=== PATIENT | male | born 1965 | race Caucasian/White ===

== ENCOUNTER 2016-12-10 15:27 | Emergency (ER) | payer OTHER ==
[~2016-12-10] VITALS: Ht 177.8 cm; Wt 88.5 kg
[2016-12-10 15:40] VITALS: BP 139/91
[2016-12-10] MEDS ORDERED: IBUPROFEN 400 MG TABLET. PO ONE (16:30)
[2016-12-10] MEDS ORDERED: HYDR-971 PO (16:32)
--- NOTE | 2016-12-10 16:32 | PHYS DOC ---
Adult General Chief Complaint Chief Complaint: LACERATION/AVULSION HPI HPI Patient is a 51-year-old male who presents with lacerations to his left index and middle fingers. The patient was using a battery operated hedge clipper. A stick got stuck and it, and he reached in to take the stick out without turning the anpuama off. The patient denies other injury. Review of Systems Review of Systems Constitutional: Denies fever or chills [] Current Medications Current Medications Current Medications Medications (Trade) Dose Ordered Sig/Andrei Start Time Stop Time Status Last Admin Dose Admin Ibuprofen (Motrin) 800 mg 1X ONCE 12/10/16 16:00 12/10/16 16:01 UNV Physical Exam Physical Exam Constitutional: Well developed, well nourished, no acute distress, non-toxic appearance. Alert, ambulatory, mentating normally. HENT: Normocephalic, atraumatic, bilateral external ears normal, nose normal. [ ] Eyes: conjunctiva normal, no discharge. [] Skin: Warm, dry, no erythema, no rash. [] Extremities: Left hand: The index finger has 3 small, superficial lacerations that are flaps, with skin still attached but likely nonviable. They're very superficial. There is no deep laceration. The index finger has a tip avulsion measuring approximately 1 x 0.7 cm and 3-4 mm thick. It involves the distal tip of the fingernail only. All lacerations are hemostatic. Neurologic: Alert and oriented X 3, normal motor function, no focal deficits noted. [] EKG EKG [] Radiology/Procedures Radiology/Procedures Procedure: Repair of left index finger lacerations by me. Lacerations total 1 cm in length. There are 3 small, superficial flap type lacerations. They were cleaned by ED nursing staff. I held pressure for a couple of minutes for hemostasis. I then used skin adhesive to repair the lacerations to cover the underlying skin with the likely devitalized skin flaps until it's able to heal underneath. Bandaged by ED nursing staff.[] Course & Med Decision Making Course & Med Decision Making Pertinent Labs and Imaging studies reviewed. (See chart for details) 51-year-old male presents with superficial flap lacerations to the left index finger and an avulsion to the left middle finger which may be full-thickness in the middle. They were cleaned and repaired and bandaged. Advised him to follow- up because he may end up needing further care or skin graft on the middle finger. The patient is stable for discharge. See instructions for plan. [] Claudine Disclaimer Claudine Disclaimer This chart was dictated in whole or in part using Voice Recognition software in a busy, high-work load, and often noisy Emergency Department environment. It may contain unintended and wholly unrecognized errors or omissions. Departure Departure: Impression: Primary Impression: Laceration of left hand without complication, including fingers Disposition: 01 HOME, SELF-CARE Condition: STABLE Patient Instructions: Fingertip Laceration Additional Instructions: On the index finger, skin glue was used to stick down the skin flaps. That will help to cover the areas until they heal. Keep it bandaged for your comfort as long as needed for comfort, it can be left open if that is more comfortable after 2 days. On the middle finger, as we discussed, an area of skin is missing. Because of the size and depth of the missing skin, I would like you to follow up and you may need referral to wound management, you may end up needing a skin graft if it doesn't heal in by itself. Call your doctor on Monday to arrange follow-up, either with your primary care doctor or they can refer you to a wound clinic for a hand surgeon. Leave the dressings in place for 48 hours. When you remove the dressing on the index finger, you may replace it with a Band-Aid or a tubular gauze, whichever you prefer based on how it feels. When you remove the dressing on the middle finger, if it is stuck, soak it in warm soapy water until you can get it off. Then, soak the finger tip for 10 minutes in warm soapy water, swish around, patent dry. Cover with antibiotic ointment or Vaseline, a nonstick dressing, and a gauze wrap or tubular gauze. Dressing it this way every day until you see your doctor for recheck, then as directed. Ibuprofen 800 mg every 6-8 hours for pain. If needed for more severe pain, hydrocodone as directed. You may take this with ibuprofen. Hydrocodone is an opiate and may be addicting, sedating, and constipating. Do not take while driving or working. Scripts Hydrocodone Bit/Acetaminophen (NORCO 5-325 TABLET) 1 Each Tablet 1 TAB PO PRN Q6HRS Y for PAIN, #10 TAB 0 Refills Prov: JUDD LEAL MD 12/10/16 JUDD LEAL MD Dec 10, 2016 16:32
== END 2016-12-10 16:50 | disposition home or self-care (01) ==
LOC: ER 15:27
DX: S61.211A Laceration without foreign body of left index finger without damage to nail, initial encounter (principal); S61.213A Laceration without foreign body of left middle finger without damage to nail, initial encounter; W29.3XXA Contact with powered garden and outdoor hand tools and machinery, initial encounter; Y93.89 Activity, other specified; Y99.8 Other external cause status; Y92.89 Other specified places as the place of occurrence of the external cause
CPT/HCPCS: 96361; 96374; 96375; 96376; 99283; 99285-25

== ENCOUNTER 2018-10-30 00:52 | Emergency (ER) | payer OTHER ==
[~2018-10-30] VITALS: Ht 177.8 cm; Wt 88.5 kg
[~2018-10-30 00:52] MED LIST: HYDR-3165 PO
--- NOTE | 2018-10-30 00:57 | ED.ADGEN ---
Past History Past Medical History: High Cholesterol, Hypertension, Kidney Stones Past Surgical History: No Surgical History Alcohol Use: Occasionally Drug Use: None Adult General Chief Complaint Chief Complaint "This probably my 4 th kidney stone.. the last one was in 2003.. and I got a stent.. I ve had one on the Lt. and 3 on Rt...." HPI HPI Patient is a 53 year old MALE who presents with above hx and complaints of severe right flank pain. Pain is intermittent and stabbing. Radiates from right flank down to groin. Patient denies any trauma. Patient denies any travel. Patient denies any immunosuppression. Patient has had history of 4 previous kidney stones one requiring a stent in 2003. Review of Systems Review of Systems Constitutional: Denies fever or chills [] Eyes: Denies change in visual acuity, redness, or eye pain [] HENT: Denies nasal congestion or sore throat [] Respiratory: Denies cough or shortness of breath [] Cardiovascular: No additional information not addressed in HPI [] GI: Denies abdominal pain, , bloody stools or diarrhea []complaints of right flank pain. Complains of nausea : Denies dysuria or hematuria [] Musculoskeletal: Denies back pain or joint pain [] Integument: Denies rash or skin lesions [] Neurologic: Denies headache, focal weakness or sensory changes [] Endocrine: Denies polyuria or polydipsia [] All other systems were reviewed and found to be within normal limits, except as documented in this note. Family History Family History Noncontributory Current Medications Current Medications Current Medications Medications (Trade) Dose Ordered Sig/Andrei Start Time Stop Time Status Last Admin Dose Admin Famotidine (Pepcid Vial) 20 mg 1X ONCE 10/30/18 01:15 10/30/18 01:16 DC 10/30/18 01:42 20 MG Ketorolac Tromethamine (Toradol 30mg Vial) 30 mg 1X ONCE 10/30/18 01:15 10/30/18 01:16 DC 10/30/18 01:42 30 MG Lactated Ringer's 1,000 ml @ 1,000 mls/hr Q1H 10/30/18 01:15 10/30/18 02:14 DC 10/30/18 01:42 1,000 MLS/HR Morphine Sulfate (Morphine 10mg Syringe) 10 mg 1X ONCE 10/30/18 03:45 10/30/18 03:46 DC 10/30/18 03:38 10 MG Ondansetron HCl (Zofran) 8 mg 1X ONCE 10/30/18 01:15 10/30/18 01:16 DC 10/30/18 01:42 8 MG Tamsulosin HCl (Flomax) 0.4 mg 1X ONCE 10/30/18 03:45 10/30/18 03:46 DC 10/30/18 03:38 0.4 MG Allergies Allergies Allergies Coded Allergies Type Severity Reaction Last Updated Verified Iodinated Contrast Media Allergy Severe Rash 10/30/18 Yes Physical Exam Physical Exam Constitutional: Well developed, well nourished, no acute distress, non-toxic appearance. [] HENT: Normocephalic, atraumatic, bilateral external ears normal, oropharynx moist, no oral exudates, nose normal. [] Eyes: PERRLA, EOMI, conjunctiva normal, no discharge. [] Neck: Normal range of motion, no tenderness, supple, no stridor. [] Cardiovascular:Heart rate regular rhythm, no murmur [] Lungs & Thorax: Bilateral breath sounds clear to auscultation [] Abdomen: Bowel sounds decreased, soft, no tenderness, no masses, no pulsatile masses. [] Skin: Warm, dry, no erythema, no rash. [] Back: No tenderness, right CVA tenderness. [] Extremities: No tenderness, no cyanosis, no clubbing, ROM intact, no edema. [] Neurologic: Alert and oriented X 3, normal motor function, normal sensory function, no focal deficits noted. [] Psychologic: Affect anxious, judgement normal, mood normal. [] Current Patient Data Vital Signs Vital Signs Date Time Temp Pulse Resp B/P (MAP) Pulse Ox O2 Delivery O2 Flow Rate FiO2 10/30/18 03:38 18 99 Room Air 10/30/18 00:52 98.6 62 Lab Results Laboratory Tests Test 10/30/18 01:00 10/30/18 01:10 Urine Collection Type Unknown Urine Color Yellow Urine Clarity Clear Urine pH 6.5 Urine Specific [place] 1.020 Urine Protein Neg (NEG-TRACE) Urine Glucose (UA) Neg mg/dL (NEG) Urine Ketones (Stick) Neg mg/dL (NEG) Urine Blood Trace (NEG) Urine Nitrite Neg (NEG) Urine Bilirubin Neg (NEG) Urine Urobilinogen Dipstick 0.2 mg/dL (0.2 mg/dL) Urine Leukocyte Esterase Neg (NEG) Urine RBC Rare /HPF (0-2) Urine WBC Occ /HPF (0-4) Urine Squamous Epithelial Cells Few /LPF Urine Bacteria 0 /HPF (0-FEW) Urine Opiates Screen Neg (NEG) Urine Methadone Screen Neg (NEG) Urine Barbiturates Neg (NEG) Urine Phencyclidine Screen Neg (NEG) Urine Amphetamine/Methamphetamine Neg (NEG) Urine Benzodiazepines Screen Neg (NEG) Urine Cocaine Screen Neg (NEG) Urine Cannabinoids Screen Neg (NEG) Urine Ethyl Alcohol Neg (NEG) White Blood Count 9.4 x10^3/uL (4.0-11.0) Red Blood Count 4.75 x10^6/uL (4.30-5.70) Hemoglobin 15.5 g/dL (13.0-17.5) Hematocrit 44.8 % (39.0-53.0) Mean Corpuscular Volume 94 fL (79-100) Mean Corpuscular Hemoglobin 33 pg (25-35) Mean Corpuscular Hemoglobin Concent 35 g/dL (31-37) Red Cell Distribution Width 13.0 % (11.5-14.5) Platelet Count 276 x10^3/uL (140-400) Neutrophils (%) (Auto) 39 % (31-73) Lymphocytes (%) (Auto) 46 % (24-48) Monocytes (%) (Auto) 10 % (0-9) H Eosinophils (%) (Auto) 4 % (0-3) H Basophils (%) (Auto) 1 % (0-3) Neutrophils # (Auto) 3.6 x10^3uL (1.8-7.7) Lymphocytes # (Auto) 4.4 x10^3/uL (1.0-4.8) Monocytes # (Auto) 1.0 x10^3/uL (0.0-1.1) Eosinophils # (Auto) 0.4 x10^3/uL (0.0-0.7) Basophils # (Auto) 0.1 x10^3/uL (0.0-0.2) Prothrombin Time 10.3 SEC (9.4-11.4) Prothrombin Time INR 1.0 (0.9-1.1) Activated Partial Thromboplast Time 27 SEC (23-33) Sodium Level 142 mmol/L (136-145) Potassium Level 3.8 mmol/L (3.5-5.1) Chloride Level 106 mmol/L (98-107) Carbon Dioxide Level 27 mmol/L (21-32) Anion Gap 9 (6-14) Blood Urea Nitrogen 18 mg/dL (8-26) Creatinine 1.1 mg/dL (0.7-1.3) Estimated GFR (Cockcroft-Gault) 70.0 Glucose Level 105 mg/dL (70-99) H Calcium Level 8.8 mg/dL (8.5-10.1) Total Bilirubin 0.5 mg/dL (0.2-1.0) Direct Bilirubin 0.2 mg/dL (0.0-0.2) Aspartate Amino Transferase (AST) 21 U/L (15-37) Alanine Aminotransferase (ALT) 33 U/L (16-63) Alkaline Phosphatase 81 U/L (46-116) Creatine Kinase 86 U/L (39-308) Troponin I Quantitative < 0.017 ng/mL (0-0.055) Total Protein 7.4 g/dL (6.4-8.2) Albumin 4.0 g/dL (3.4-5.0) Lipase 158 U/L (73-393) EKG EKG [] Radiology/Procedures Radiology/Procedures [] Signed PATIENT: DEACON SANTIAGO ACCOUNT: [id number] : 1965 LOCATION: ER AGE: 53 SEX: M EXAM STATUS: REG ER ORD. PHYSICIAN: GERARD SABA MD REASON: flank pain, H/O KIDNEY STONES. PROCEDURE: CT ABDOMEN PELVIS WO CONTRAST CT ABDOMEN PELVIS WO CONTRAST INDICATION: Flank pain, history of renal calculi EXAM: Noncontrast CT of the abdomen and pelvis. Coronal and sagittal reformatted images were performed. PQRS compliance statement: One or more of the following individualized dose reduction techniques were utilized for this examination: 1. Automated exposure control 2. Adjustment of the mA and/or kV according to patient size 3. Use of iterative reconstruction technique COMPARISON: None FINDINGS: No free air, free fluid, or fluid collection. Lower chest: The visualized lower lungs are aerated. No pleural or pericardial effusion. ABDOMEN: Liver: The noncontrast liver is homogeneous in attenuation. Gallbladder and biliary: Gallbladder is decompressed. Normal caliber bile ducts. Spleen: Normal spleen. Pancreas: The noncontrast pancreas is homogeneous in attenuation without peripancreatic inflammatory changes. Adrenal glands: Normal adrenal glands. Kidneys and ureters: Moderate right hydronephrosis. 4 mm calculus at the right ureteropelvic junction. GI tract: The stomach contains debris. Normal caliber small bowel and colon. Normal appendix. Vascular structures: Normal caliber abdominal aorta. Lymph nodes: No lymphadenopathy in the abdomen or pelvis. PELVIS: Genitourinary system: Diffuse bladder wall thickening. Dystrophic prostate calcifications. SKELETAL STRUCTURES AND SOFT TISSUES: Multilevel degenerative changes of the spine. IMPRESSION: 1. Moderate right hydronephrosis secondary to a 4 mm calculus at the right ureteropelvic junction. 2. Diffuse bladder wall thickening, which may relate to underdistention, obstructive uropathy, or cystitis. Consider urinalysis. Electronically signed by: Lily Mehta MD (10/30/2018 2:46 AM) [facility] DICTATED AND SIGNED BY: LILY MEHTA MD DATE: 10/30/18 0246 CC: GERARD SABA MD; IVETH MURILLO MD ~ Course & Med Decision Making Course & Med Decision Making Pertinent Labs and Imaging studies reviewed. (See chart for details). Push fluids. Take Flomax at night. The past. Follow-up primary. Follow-up with urology. Take Zofran for nausea and vomiting. For marked pain take Vicoprofen up to 4 times a day. [] Final Impression Final Impression 1. Renal Colic[]- Kidney stone Rt. Dragon Disclaimer Dragon Disclaimer This electronic medical record was generated, in whole or in part, using a voice recognition dictation system. Dragon Disclaimer This chart was dictated in whole or in part using Voice Recognition software in a busy, high-work load, and often noisy Emergency Department environment. It may contain unintended and wholly unrecognized errors or omissions. GERARD SABA MD Oct 30, 2018 00:57
[2018-10-30] MEDS ORDERED: ONDANSETRON PF 4 MG/2 ML VIAL. IV ONE (01:15)
[2018-10-30] MEDS ORDERED: KETOROLAC 30 MG/ML VIAL. IV ONE (01:15)
[2018-10-30] MEDS ORDERED: IV RINGERS SOLUTION,LACTATED 1,000 ML IV SCH (01:15)
[2018-10-30] MEDS ORDERED: FAMOTIDINE 20 MG/2 ML VIAL IVP ONE (01:15)
[2018-10-30 01:28] LABS: BASO # 0.1 x10^3/uL (0.0-0.2); BASO % 1 % (0-3); EOS # 0.4 x10^3/uL (0.0-0.7); EOS % 4 % (0-3); HEMATOCRIT 44.8 % (39.0-53.0); HEMOGLOBIN 15.5 g/dL (13.0-17.5); LYMPH # 4.4 x10^3/uL (1.0-4.8); LYMPH % 46 % (24-48); MEAN CORPUSCULAR HEMOGLOBIN 33 pg (25-35); MEAN CORPUSCULAR HGB CONC 35 g/dL (31-37); MEAN CORPUSCULAR VOLUME 94 fL (79-100); MONO % 10 % (0-9); NEUT # 3.6 x10^3uL (1.8-7.7); NEUT % 39 % (31-73); PLATELET COUNT 276 x10^3/uL (140-400); RED BLOOD COUNT 4.75 x10^6/uL (4.30-5.70); WHITE BLOOD COUNT 9.4 x10^3/uL (4.0-11.0)
[2018-10-30 01:35] LABS: BILIRUBIN,URINE NEG (NEG); CLARITY,URINE CLEAR; COLOR,URINE YELLOW; GLUCOSE,URINE NEG (NEG); NITRITE,URINE NEG (NEG); UROBILINOGEN,URINE 0.2 mg/dL (0.2 mg/dL)
[2018-10-30 01:37] LABS: BARBITURATES NEG (NEG); BENZODIAZEPINES NEG (NEG); CANNABINOIDS NEG (NEG); COCAINE NEG (NEG); METHADONE NEG (NEG); OPIATES NEG (NEG); PHENCYCLIDINE NEG (NEG)
[2018-10-30 01:38] LABS: BACTERIA,URINE 0 /HPF (0-FEW); RBC,URINE RARE /HPF (0-2); SQUAMOUS EPITHELIAL CELL,UR FEW /LPF; WBC,URINE OCC /HPF (0-4)
[2018-10-30 01:41] LABS: CALCIUM 8.8 mg/dL (8.5-10.1); CREATININE 1.1 mg/dL (0.7-1.3); DIRECT BILIRUBIN 0.2 mg/dL (0.0-0.2); POTASSIUM 3.8 mmol/L (3.5-5.1); TOTAL BILIRUBIN 0.5 mg/dL (0.2-1.0); TOTAL PROTEIN 7.4 g/dL (6.4-8.2)
[2018-10-30 01:43] LABS: AMPHETAMINE/METHAMPHETAMINE NEG (NEG)
--- NOTE | 2018-10-30 02:49 | RAD ---
CT ABDOMEN PELVIS WO CONTRAST INDICATION: Flank pain, history of renal calculi EXAM: Noncontrast CT of the abdomen and pelvis. Coronal and sagittal reformatted images were performed. PQRS compliance statement: One or more of the following individualized dose reduction techniques were utilized for this examination: 1. Automated exposure control 2. Adjustment of the mA and/or kV according to patient size 3. Use of iterative reconstruction technique COMPARISON: None FINDINGS: No free air, free fluid, or fluid collection. Lower chest: The visualized lower lungs are aerated. No pleural or pericardial effusion. ABDOMEN: Liver: The noncontrast liver is homogeneous in attenuation. Gallbladder and biliary: Gallbladder is decompressed. Normal caliber bile ducts. Spleen: Normal spleen. Pancreas: The noncontrast pancreas is homogeneous in attenuation without peripancreatic inflammatory changes. Adrenal glands: Normal adrenal glands. Kidneys and ureters: Moderate right hydronephrosis. 4 mm calculus at the right ureteropelvic junction. GI tract: The stomach contains debris. Normal caliber small bowel and colon. Normal appendix. Vascular structures: Normal caliber abdominal aorta. Lymph nodes: No lymphadenopathy in the abdomen or pelvis. PELVIS: Genitourinary system: Diffuse bladder wall thickening. Dystrophic prostate calcifications. SKELETAL STRUCTURES AND SOFT TISSUES: Multilevel degenerative changes of the spine. IMPRESSION: 1. Moderate right hydronephrosis secondary to a 4 mm calculus at the right ureteropelvic junction. 2. Diffuse bladder wall thickening, which may relate to underdistention, obstructive uropathy, or cystitis. Consider urinalysis. Electronically signed by: Winston Mehta MD (10/30/2018 2:46 AM) [facility]
[2018-10-30] MEDS ORDERED: TAMS0.4C97 PO (03:24)
[2018-10-30] MEDS ORDERED: HYDR-1179 PO (03:24)
[2018-10-30] MEDS ORDERED: ONDA8TAB9 PO (03:24)
[2018-10-30] MEDS ORDERED: MORPHINE SULFATE 10 MG/ML SYRINGE. SQ ONE (03:45)
[2018-10-30] MEDS ORDERED: TAMSULOSIN 0.4 MG CAP.ER.24H. PO ONE (03:45)
[2018-10-30 04:10] VITALS: BP 125/88
--- NOTE | 2018-10-30 05:19 | RAD ---
ACUTE ABDOMEN SERIES INDICATION: Abdominal pain. COMPARISON STUDY: None. FINDINGS: Lungs: Normal lung volume. No pulmonary mass or consolidation. The tracheobronchial tree and hilar structures are normal. Pleura: No pleural effusion or pneumothorax. Heart and Mediastinum: The cardiomediastinal silhouette is normal. The great vessels of the thorax are normal. Abdomen: Scattered gaseous distention of large and small bowel. Moderate colonic stool burden. No free air. Bones and Soft Tissues: The bones and soft tissues are within normal limits. IMPRESSION: No acute cardiopulmonary process. Scattered gaseous distention of large and small bowel. Moderate colonic stool burden. No free air. Electronically signed by: Winston Mehta MD (10/30/2018 5:16 AM) [facility]
== END 2018-10-30 04:10 | disposition home or self-care (01) ==
LOC: ER 00:52
DX: N13.2 Hydronephrosis with renal and ureteral calculous obstruction (principal); E78.00 Pure hypercholesterolemia, unspecified; I10 Essential (primary) hypertension; Z88.8 Allergy status to other drugs, medicaments and biological substances
CPT/HCPCS: 36415; 74022; 74176; 80048; 80076; 80307; 81001; 82550; 83690; 84484; 85025; 85610; 85730; 96372; 96374; 96375; 99285; J1885; J2270; J2405; J3490; J7120

== ENCOUNTER → 2019-01-30 | Outpatient (CLI) | payer OTHER ==
[~2019-01-30] MED LIST changes: +HYDR-1179 PO; +ONDA8TAB9 PO; +TAMS0.4C97 PO
--- NOTE | 2019-01-30 10:24 | RAD ---
EXAM: CT Abdomen and Pelvis without IV contrast CLINICAL HISTORY: Renal calculi. COMPARISON: none TECHNIQUE: Helical CT of the abdomen and pelvis without intravenous contrast. Axial, coronal and sagittal reformatted images were generated. PQRS compliance statement - One or more of the following individualized dose reduction techniques were utilized for this study: 1. Automated exposure control 2. Adjustment of the mA and/or kV according to patient size 3. Use of iterative reconstruction technique FINDINGS: Lack of intravenous contrast limits evaluation of solid organs, vasculature, and lymph nodes. Lower chest: Lung bases are clear. Abdomen and Pelvis: No focal liver lesion. Gallbladder is normal. No biliary ductal dilatation. Spleen is unremarkable. Adrenal glands and pancreas are unremarkable. Left interpolar hypodense renal lesion, possibly cystic. There is moderate right hydronephrosis. 4 mm calculus is seen within the proximal right ureter. Associated perinephric and periureteral infiltration is seen. No distal right ureteral or left renal tract calculus. No bladder calculus. Diffuse bladder wall thickening, nonspecific but may be seen with cystitis. Appendix is normal. No small or large bowel dilatation. Moderate colonic stool content. Prostatic calcifications are seen. No abdominal or pelvic ascites. No abdominal or pelvic lymphadenopathy. Circumaortic left renal vein. Aorta is normal in caliber. Bones: Degenerative changes of the spine are seen. No aggressive osseous lesion. Moderate to severe L4-L5 disc height loss. Facet degenerative changes are seen. IMPRESSION: 1. Stable 4 mm calculus within the proximal right ureter with associated moderate hydronephrosis. Associated perinephric/periureteric infiltration, may be reactive but superimposed infection is not excluded. 2. Diffuse bladder wall thickening may be seen with cystitis. Electronically signed by: Bernardino Hernandez MD (01/30/2019 10:21 AM) [id number]
== END | disposition home or self-care (01) ==
LOC: CT 08:10
PROVIDERS: ATTEND Urology
DX: N13.2 Hydronephrosis with renal and ureteral calculous obstruction (principal)
CPT/HCPCS: 74176